=== PATIENT | male | born 1945 | race Caucasian/White ===

== ENCOUNTER 2017-05-17 09:50 | Emergency (ER) | payer MEDICARE ==
--- NOTE | 2017-05-17 10:34 | ED.PDOC ---
History of Present Illness - General Chief Complaint: General Stated Complaint: Pt sent for abnormal labs Time Seen by Provider: 05/17/17 10:16 Source: Vital Signs reviewed, family, senior care records Exam Limitations: other - pt is comatose - History of Present Illness Timing/Duration: unsure Severity: severe Improving Factors: nothing Worsening Factors: nothing Allergies/Adverse Reactions: Allergies NO KNOWN ALLERGY Allergy (Verified 05/17/17 10:05) Review of Systems - Review of Systems Unable to Obtain Due To: condition - comatose, intubated Past Medical History (General) - Patient Medical History Hx Stroke: No Hx of COPD: Yes Hx Congestive Heart Failure: No Hx Hypertension: Yes 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 Hx Cancer: Yes - prostate Surgical History: cholecystectomy, other - Vaccination History Hx Influenza Vaccination: - unknown Hx Pneumococcal Vaccination: - unknown - Social History Hx Tobacco Use: Yes - Activities of Daily Living [facility] applicable[facility] Family Medical History - Family History Father Family History: Unknown Living Status: Physical Exam - Physical Exam General Appearance: Other - unresponsive, on vent Ears, Nose, Throat: other - tracheostomy present with tube Respiratory: other - shallow breath sounds Cardiovascular/Chest: normal peripheral pulses, regular rate, rhythm, other - 1 + edema to both feet Gastrointestinal/Abdominal: normal bowel sounds, non tender, soft, other - gastrostomy with tube Extremity: other - severe atrophy to all extremities Neurologic: other - comatose Skin Exam: normal color, warm/dry Departure - Departure Clinical Impression: Respiratory failure with hypercapnia, Encephalopathy chronic Pneumonia Qualifiers: Laterality: bilateral Lung location: unspecified part of lung Disposition: Transfer to Hospital Condition: Poor Departure Forms: ED Discharge - Pt. Copy, Patient Portal Self Enrollment Referrals: YESI CRUZ [Primary Care Provider] - 1-2 Weeks
--- NOTE | 2017-05-17 11:35 | RAD ---
EXAM DESCRIPTION: Chest,1 View CLINICAL HISTORY: pneumonia, vent dependent COMPARISON: None Impression: Portable frontal view the thorax. Tracheostomy tube is noted with tip projecting over the midline of the trachea. There is lucency within the right lower lung that likely reflects a bulla or loculated pneumothorax. Appearance would be atypical for an acute pneumothorax. There is multifocal airspace opacities greater throughout the right lung consistent with pneumonia. There is increased density with architectural distortion extending from the lateral right lung pleura which may represent chronic fibrosis/scar or desmoplastic reaction associated with neoplastic disease. If prior imaging is available for comparison, I would be happy to review it. Moderate size bilateral pleural effusions. No acute osseous pathology demonstrated. Electronically signed by: Marek Darden MD 05/17/2017 11:33 AM [employer]
[2017-05-17] MEDS ORDERED: CEFEPIME 2 GM in SODIUM CHL 0.9% 50ML MIN-BAG+ 50 ML IVPB ONE (13:09)
[2017-05-17] MEDS ORDERED: SODIUM CHL 0.9% 50ML MIN-BAG+ 50 ML IVPB ONE (14:34)
[2017-05-17] MEDS ORDERED: CEFEPIME 2 GM VIAL IVPB ONE (14:34)
[2017-05-17] MEDS ORDERED: IPRATROPIUM/ALBUTEROL 3 ML VIAL NEB ONE (14:59)
[2017-05-17 16:12] VITALS: TEMP 98.2; O2SAT 92
[2017-05-17 18:45] VITALS: BP 106/63
== END 2017-05-17 17:00 | disposition short-term general hospital (02) ==
LOC: ER 09:50
DX: J96.92 Respiratory failure, unspecified with hypercapnia (principal); G93.40 Encephalopathy, unspecified; J44.9 Chronic obstructive pulmonary disease, unspecified; E11.9 Type 2 diabetes mellitus without complications; Z93.1 Gastrostomy status; Z85.46 Personal history of malignant neoplasm of prostate; Z87.891 Personal history of nicotine dependence
CPT/HCPCS: 36415; 36600; 71045; 80053; 82803; 82805; 83605; 85025; 87040; 94002; 94640; 94770; J0692; J7050; J7620